=== PATIENT | female | born 1955 ===

== ENCOUNTER 2016-04-12 13:53 | Outpatient (CLI) | payer OTHER ==
--- NOTE | 2016-04-12 15:49 | XRay Report ---
CHEST TWO VIEWS: 04/12/16 13:53:00 CLINICAL: Cough. COMPARISON: None FINDINGS: Normal heart and pulmonary vasculature.Mild aortic tortuosity. The lungs are normally expanded and clear.Mild degenerative change in the spine. IMPRESSION: No acute cardiopulmonary process.No pneumonia.
== END 2016-04-12 13:54 | disposition home or self-care (01) ==
LOC: SPVIMAG 13:53
PROVIDERS: ATTEND Internal Medicine
DX: R05 Cough (principal); M47.899 Other spondylosis, site unspecified
CPT/HCPCS: 71020